=== PATIENT | male | born 1980 | race Caucasian/White ===

== ENCOUNTER → 2019-04-19 10:59 | Outpatient (CLI) | payer OTHER ==
[2013-10-15 09:02] VITALS: BMI 33.5
[~2019-04-19 10:59] MED LIST: HYDROCODON-ACE1 EAC7 PO; NORCO 5/325 TAB1 TA1 PO; SYNTHROID200 MC1 PO; ULTRAM50 MG PO
== END | disposition home or self-care (01) ==
LOC: D.US 10:59
PROVIDERS: ATTEND Nurse Practitioner Family
DX: R10.9 Unspecified abdominal pain (principal)

== ENCOUNTER 2019-05-17 00:17 | Emergency (ER) | payer OTHER ==
[~2019-05-17] VITALS: Ht 180.3 cm; Wt 98.6 kg
[~2019-05-17 00:17] MED LIST changes: -HYDROCODON-ACE1 EAC7 PO
[2019-05-17 00:21] VITALS: Ht 180.3 cm; Wt 98.6 kg
[2019-05-17 00:51] LABS: BASOPHILS 0.1 % (0-2); EOSINOPHILS 1.2 % (0-7); HEMATOCRIT 48.4 % (42.0-54.0); HEMOGLOBIN 16.4 g/dL (13.5-17.5); IMMATURE GRANULOCYTES 0.3 % (0-5); LYMPHOCYTES 23.6 % (15-50); MCH 30.7 pg (26.0-34.0); MCHC 33.9 g/dL (31.0-37.0); MCV 90.5 fL (80.0-100.0); MEAN PLATELET VOLUME 9.2 fL (7.4-10.4); MONOCYTES 6.1 % (2-11); NEUTROPHILS 68.7 % (40-80); PLATELET COUNT 214 10x3/uL (130-400); RBC 5.35 10x6/uL (4.20-6.10); RDW 12.6 % (11.5-14.5); WBC 11.6 10x3/uL (4.8-10.8)
[2019-05-17 00:57] LABS: ANION GAP 13.2 mmol/L (8-16); CARBON DIOXIDE 30.5 mmol/L (21.0-32.0); CREATININE - SERUM 1.3 mg/dL (0.6-1.3); POTASSIUM - SERUM 3.7 mmol/L (3.5-5.1)
[2019-05-17 01:00] LABS: ALBUMIN 4.1 g/dL (3.4-5.0); BILIRUBIN - TOTAL 0.44 mg/dL (0.2-1.3); PROTEIN - SERUM 7.5 g/dL (6.4-8.2)
[2019-05-17 01:08] LABS: UDS - AMPHET NEGATIVE QUAL (NEGATIVE); UDS - BARB NEGATIVE QUAL (NEGATIVE); UDS - BENZO NEGATIVE QUAL (NEGATIVE); UDS - COCAINE NEGATIVE QUAL (NEGATIVE); UDS - OPIATE POSITIVE QUAL (NEGATIVE); UDS - PCP NEGATIVE QUAL (NEGATIVE); UDS - THC NEGATIVE QUAL (NEGATIVE)
[2019-05-17 01:16] LABS: APPEARANCE CLEAR (CLEAR); BILIRUBIN NEGATIVE (NEGATIVE); COLOR YELLOW (YELLOW); GLUCOSE NEGATIVE (NEGATIVE); KETONE NEGATIVE (NEGATIVE); NITRITE NEGATIVE (NEGATIVE); PROTEIN NEGATIVE (NEGATIVE); SPECIFIC GRAVITY 1.025 (1.005-1.020); UROBILINOGEN NORMAL (NORMAL)
[2019-05-17 01:17] LABS: BACTERIA FEW /hpf (NEGATIVE); EPITHELIAL CELLS 0-5 /hpf (0-5); MUCUS <1+ /lpf (NONE SEEN); RED CELLS - URINE 0-5 /hpf (0-5); WHITE CELLS - URINE 0-5 /hpf (NEGATIVE)
[2019-05-17] MEDS ORDERED: HYDROCODON-ACE1 EAC7 PO (03:14)
[2019-05-17 03:40] VITALS: BP 128/88
[2019-05-21 19:08] LABS: CHLAMYDIA TRACHOMATIS, NAA Negative (Negative)
== END 2019-05-17 03:40 | disposition home or self-care (01) ==
LOC: D.ER 00:17
PROVIDERS: Family Medicine
DX: R10.32 Left lower quadrant pain (principal); E07.9 Disorder of thyroid, unspecified

== ENCOUNTER 2019-08-16 21:34 | Observation (INO) | payer OTHER ==
[~2019-08-16] VITALS: Ht 180.3 cm; Wt 104.5 kg
[~2019-08-16 21:34] MED LIST changes: +HYDROCODON-ACE1 EAC7 PO
[2019-08-16 22:03] LABS: BASOPHILS 0.2 % (0-2); EOSINOPHILS 2.1 % (0-7); HEMATOCRIT 47.7 % (42.0-54.0); IMMATURE GRANULOCYTES 0.2 % (0-5); LYMPHOCYTES 21.9 % (15-50); MCH 31.1 pg (26.0-34.0); MCHC 33.5 g/dL (31.0-37.0); MCV 92.6 fL (80.0-100.0); MEAN PLATELET VOLUME 9.4 fL (7.4-10.4); MONOCYTES 5.6 % (2-11); RBC 5.15 10x6/uL (4.20-6.10); WBC 13.1 10x3/uL (4.8-10.8)
[2019-08-16 22:05] LABS: PLATELET COUNT 279 10x3/uL (130-400)
[2019-08-16 22:19] LABS: APTT 29.8 SECONDS (22.8-39.4); INR 0.96 (0.85-1.17); PROTIME 12.8 SECONDS (11.6-15.0)
[2019-08-16 22:36] LABS: ANION GAP 14.8 mmol/L (8-16); CALCIUM 9.4 mg/dL (8.5-10.1); CARBON DIOXIDE 25.4 mmol/L (21.0-32.0); CREATININE - SERUM 1.4 mg/dL (0.6-1.3); POTASSIUM - SERUM 4.2 mmol/L (3.5-5.1)
[2019-08-16 22:42] LABS: ALBUMIN 4.6 g/dL (3.4-5.0); BILIRUBIN - TOTAL 0.68 mg/dL (0.2-1.3); PROTEIN - SERUM 7.8 g/dL (6.4-8.2)
--- NOTE | 2019-08-16 22:53 | NUR ---
ATTEMPTED TO COLLECT URINE AT THIS TIME, ULTRASOUND IN PROGRESS.
--- NOTE | 2019-08-16 23:16 | NUR ---
URINE SENT TO LAB AT THIS TIME.
[2019-08-16 23:19] LABS: BILIRUBIN NEGATIVE (NEGATIVE); GLUCOSE NEGATIVE (NEGATIVE); KETONE NEGATIVE (NEGATIVE); NITRITE NEGATIVE (NEGATIVE); SPECIFIC GRAVITY 1.015 (1.005-1.020); UROBILINOGEN NORMAL (NORMAL)
--- NOTE | 2019-08-17 00:48 | NUR ---
PT LEAVING FLOOR FOR ORDERED CT AT THIS TIME
[2019-08-17 01:28] VITALS: BP 121/79
--- NOTE | 2019-08-17 02:00 | NUR ---
PATIENT ARRIVED TO THE FLOOR VIA BED WITH HOSPITAL STAFF ACCOMPANYING. NO S/S OF ACUTE DISTRESS. C/O GROIN PAIN. PATIENT HAS RIGHT AC NORMAL SALINE 125 ML/HR. IV IS PATENT WITHOUT REDNESS, SWELLING, OR TENDERNESS. 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 PATIENT IS NPO. CALL LIGHT IN PLACE. WILL CONTINUE TO MONITOR.
[2019-08-17 02:34] VITALS: BP 111/62; BMI 32.1
--- NOTE | 2019-08-17 03:40 | NUR ---
I have reviewed this patient and I concur with the Shift Assessment completed by the Licensed Practical Nurse today this shift.
[2019-08-17 04:00] VITALS: BP 110/71
--- NOTE | 2019-08-17 07:10 | NUR ---
PT RESTING IN BED. NO SIGNS OF DISTRESS. IV TO RIGHT AC PATENT NO REDNESS OR TENDERNESS. COMPLAINS OF PAIN. MEDICATIONS GIVEN. DENIES ANY FURTHER NEED AT THIS TIME. CALL LIGHT IN REACH. BED LOW POSITION. FAMILY AT BEDSIDE AT THIS TIME.
[2019-08-17 08:48] VITALS: BP 122/51
[2019-08-17 13:01] VITALS: BP 128/83
[2019-08-17] MEDS ORDERED: ROXICODONE15 MG PO (13:20)
[2019-08-17] MEDS ORDERED: LIDODERM 5 %1 PATCH TRANSDERM (13:21)
[2019-08-17 13:29] VITALS: Ht 180.3 cm; Wt 104.5 kg
--- NOTE | 2019-08-17 14:53 | NUR ---
DISCHARGE INSTRUCITONS GIVEN. SEEMS TO UNDERTSTAND INSTRCUTIONS. IV OUT TIP INTACT, LIDOCIANE APPLIED. LEFT WITH HOSPITAL STAFF TO GO HOME IN PERSONAL RIDE TO GO HOME.
== END 2019-08-17 14:54 | disposition home or self-care (01) ==
LOC: D.ER 21:34 → D.MS 08-17 00:39 → OBSVTIME 08-17 00:39 → D.MS 08-17 14:54
PROVIDERS: Family Medicine; ADMIT Surgery; ATTEND Surgery
DX: R10.32 Left lower quadrant pain (principal); G89.29 Other chronic pain

== ENCOUNTER 2019-08-19 14:01 | Emergency (ER) | payer OTHER ==
[~2019-08-19] VITALS: Ht 180.3 cm; Wt 104.5 kg
[~2019-08-19 14:01] MED LIST changes: +LIDODERM 5 %1 PATCH TRANSDERM; +ROXICODONE15 MG PO
[2019-08-19 14:08] VITALS: Ht 180.3 cm; Wt 104.5 kg
[2019-08-19 14:45] LABS: BASOPHILS 0.1 % (0-2); EOSINOPHILS 1.7 % (0-7); HEMATOCRIT 46.8 % (42.0-54.0); IMMATURE GRANULOCYTES 0.3 % (0-5); LYMPHOCYTES 23.1 % (15-50); MCH 31.3 pg (26.0-34.0); MCHC 34.2 g/dL (31.0-37.0); MCV 91.6 fL (80.0-100.0); MONOCYTES 5.7 % (2-11); NEUTROPHILS 69.1 % (40-80); PLATELET COUNT 236 10x3/uL (130-400); RBC 5.11 10x6/uL (4.20-6.10); WBC 10.2 10x3/uL (4.8-10.8)
[2019-08-19 15:06] LABS: CALCIUM 9.2 mg/dL (8.5-10.1); CARBON DIOXIDE 28.6 mmol/L (21.0-32.0); CREATININE - SERUM 1.4 mg/dL (0.6-1.3); POTASSIUM - SERUM 3.6 mmol/L (3.5-5.1)
[2019-08-19 15:12] LABS: ALBUMIN 4.3 g/dL (3.4-5.0); BILIRUBIN - TOTAL 0.74 mg/dL (0.2-1.3); PROTEIN - SERUM 7.2 g/dL (6.4-8.2)
[2019-08-19 15:32] LABS: UDS - AMPHET NEGATIVE QUAL (NEGATIVE); UDS - BARB NEGATIVE QUAL (NEGATIVE); UDS - BENZO NEGATIVE QUAL (NEGATIVE); UDS - COCAINE NEGATIVE QUAL (NEGATIVE); UDS - OPIATE POSITIVE QUAL (NEGATIVE); UDS - PCP NEGATIVE QUAL (NEGATIVE); UDS - THC NEGATIVE QUAL (NEGATIVE)
[2019-08-19 15:35] LABS: BILIRUBIN NEGATIVE (NEGATIVE); GLUCOSE NEGATIVE (NEGATIVE); KETONE NEGATIVE (NEGATIVE); NITRITE NEGATIVE (NEGATIVE); SPECIFIC GRAVITY 1.015 (1.005-1.020); UROBILINOGEN NORMAL (NORMAL)
[2019-08-19 18:08] VITALS: BP 130/75
== END 2019-08-19 18:08 | disposition home or self-care (01) ==
LOC: D.ER 14:01
PROVIDERS: Family Medicine
DX: G89.29 Other chronic pain (principal); R10.30 Lower abdominal pain, unspecified; E07.9 Disorder of thyroid, unspecified

== ENCOUNTER → 2019-08-23 14:38 | Outpatient (CLI) | payer OTHER ==
[2019-08-19 14:08] VITALS: BMI 32.1
== END | disposition home or self-care (01) ==
LOC: D.MRI 14:38
PROVIDERS: ATTEND Internal Medicine
DX: Z48.815 Encounter for surgical aftercare following surgery on the digestive system (principal)